=== PATIENT | male | born 1960 | race Caucasian/White ===

== ENCOUNTER 2017-02-06 16:50 | Emergency (ER) | payer MEDICAID ==
[~2017-02-06] VITALS: Ht 175.3 cm; Wt 74.8 kg
[2017-02-06] MEDS ORDERED: NEOMY/BACITRA/POLYMYXIN B OINT UD PACKET TP ONE ×2 (18:30→18:40)
--- NOTE | 2017-02-06 18:34 | NUR ---
Patient discharged to home in stable conditon. Written and verbal after care instructions given. Patient verbalizes understanding of instructions.
== END 2017-02-06 18:35 | disposition home or self-care (01) ==
LOC: ER 16:52
DX: T63.301A Toxic effect of unspecified spider venom, accidental (unintentional), initial encounter (principal); S80.811A Abrasion, right lower leg, initial encounter; Z59.0 Homelessness; V89.9XXA Person injured in unspecified vehicle accident, initial encounter; Y93.89 Activity, other specified; Y92.89 Other specified places as the place of occurrence of the external cause; Y99.8 Other external cause status
CPT/HCPCS: 99283; A4217; A4663

== ENCOUNTER 2017-07-27 14:56 | Emergency (ER) | payer MEDICAID ==
[~2017-07-27] VITALS: Ht 175.3 cm; Wt 77.1 kg
[2017-07-27] MEDS ORDERED: NEOMY/BACITRA/POLYMYXIN B OINT UD PACKET TP ONE ×2 (15:35→15:45)
--- NOTE | 2017-07-27 16:04 | NUR ---
Patient discharged to home in stable conditon & brisk steady gait. Written and verbal after care instructions given to patient. Patient verbalizes understanding of instructions.
== END 2017-07-27 16:06 | disposition home or self-care (01) ==
LOC: ER 14:57
DX: S00.11XA Contusion of right eyelid and periocular area, initial encounter (principal); Z59.0 Homelessness; V19.9XXA Pedal cyclist (driver) (passenger) injured in unspecified traffic accident, initial encounter; Y93.55 Activity, bike riding; Y92.89 Other specified places as the place of occurrence of the external cause; Y99.8 Other external cause status
CPT/HCPCS: A4217; A4663

== ENCOUNTER 2017-10-18 05:38 | Emergency (ER) | payer MEDICAID ==
[~2017-10-18] VITALS: Ht 175.3 cm; Wt 77.1 kg
--- NOTE | 2017-10-18 05:45 | NUR ---
Dr. Ferrer at bedside for MSE.
[2017-10-18] MEDS ORDERED: NEOMY/BACITRA/POLYMYXIN B OINT UD PACKET TP ONE ×2 (05:56→06:00)
--- NOTE | 2017-10-18 05:56 | NUR ---
Patient eloped from facility. ER physician notified. Last seen [id number]. Pt was treated by MD didn't wait for discharge after care instructions.
== END 2017-10-18 05:59 | disposition left against medical advice (07) ==
LOC: ER 05:41
DX: S00.81XA Abrasion of other part of head, initial encounter (principal); Z90.89 Acquired absence of other organs; Z59.0 Homelessness; W01.198A Fall on same level from slipping, tripping and stumbling with subsequent striking against other object, initial encounter; Y93.89 Activity, other specified; Y92.89 Other specified places as the place of occurrence of the external cause; Y99.8 Other external cause status
CPT/HCPCS: 99283; A4217; A4663

== ENCOUNTER 2017-12-17 21:55 | Emergency (ER) | payer MEDICAID ==
[~2017-12-17] VITALS: Ht 175.3 cm; Wt 68.0 kg
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
[2017-12-17] MEDS ORDERED: TDAP DIPH,PERTUSS,TET VAC/PF 0.5 ML DISP.SYRIN IM ONE ×2 (22:30→22:42)
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
[2017-12-17] MEDS ORDERED: NEOMY/BACITRA/POLYMYXIN B OINT UD PACKET TP ONE ×2 (22:44→22:45)
--- NOTE | 2017-12-17 23:17 | NUR ---
Pt refused to have CT scan of head, signed. Gave pt AMA-d/c instructions, pt verbalized understanding.
== END 2017-12-17 23:22 | disposition left against medical advice (07) ==
LOC: ER 21:59
DX: S01.81XA Laceration without foreign body of other part of head, initial encounter (principal); S00.81XA Abrasion of other part of head, initial encounter; S00.83XA Contusion of other part of head, initial encounter; S09.90XA Unspecified injury of head, initial encounter; Z59.0 Homelessness; Y00.XXXA Assault by blunt object, initial encounter; Y93.89 Activity, other specified; Y92.89 Other specified places as the place of occurrence of the external cause; Y99.8 Other external cause status
CPT/HCPCS: 12011; 90471; 90715; 99283; A4663

== ENCOUNTER 2018-05-27 11:38 | Emergency (ER) | payer MEDICAID ==
[~2018-05-27] VITALS: Ht 175.3 cm; Wt 77.1 kg
--- NOTE | 2018-05-27 12:10 | NUR ---
soaked the left foot in luke warm water and soap.
[2018-05-27] MEDS ORDERED: NEOMY/BACITRA/POLYMYXIN B OINT UD PACKET TP ONE ×2 (12:28→12:45)
--- NOTE | 2018-05-27 12:29 | NUR ---
will castillo performed I@D on the left foot sole. pt tolerated well. dressed with polysporinn and bulky dressing per order. Addendum: 05/27/18 at 1236 by VICKI non-adhessive bulky dressing
--- NOTE | 2018-05-27 12:31 | NUR ---
Patient discharged to home in stable conditon. Written and verbal after care instructions given. Patient verbalizes understanding of instructions.pt walks in steady gait. pt dneis to be homelss, although has very poor hygiene.
== END 2018-05-27 12:40 | disposition home or self-care (01) ==
LOC: ER 11:38
DX: S91.332A Puncture wound without foreign body, left foot, initial encounter (principal); L02.612 Cutaneous abscess of left foot; Z59.0 Homelessness; W45.0XXA Nail entering through skin, initial encounter; Y93.89 Activity, other specified; Y92.89 Other specified places as the place of occurrence of the external cause; Y99.8 Other external cause status
CPT/HCPCS: 73630; A4663